=== PATIENT | male | born 1945 | race Caucasian/White ===

== ENCOUNTER 2017-03-15 10:44 | Outpatient (CLI) | payer MEDICARE, BC | END 2017-03-15 10:45 | disposition home or self-care (01) | DX: G47.33 Obstructive sleep apnea (adult) (pediatric) (principal) | CPT/HCPCS: 99214; G0463 ==

== ENCOUNTER 2018-02-07 12:00 | Outpatient (CLI) | payer MEDICARE, BC ==
--- NOTE | 2018-02-07 16:30 | XRAY Report ---
THREE VIEW RIGHT KNEE: 02/07/2018 CLINICAL INDICATION: Pain. FINDINGS: AP, lateral, sunrise views of the right knee demonstrate moderate osteoarthritis. A moderate effusion is present. There is no evidence of acute fracture or dislocation. Vascular calcifications are seen. IMPRESSION: MODERATE OSTEOARTHRITIS, WITH A MODERATE JOINT EFFUSION. TD: 02/07/2018 16:29
== END 2018-02-07 12:01 | disposition home or self-care (01) ==
LOC: DI.S 12:00
PROVIDERS: ATTEND Registered Nurse
DX: M17.11 Unilateral primary osteoarthritis, right knee (principal); M25.461 Effusion, right knee

== ENCOUNTER 2018-06-10 12:20 | Outpatient (CLI) | payer MEDICARE, BC ==
--- NOTE | 2018-06-11 15:48 | Ultrasound Report ---
Procedure Date: 06/10/2018 Accession Number: [id number] / [id number] Procedure: US - Carotid Doppler Complete CPT Code: FULL RESULT: EXAM: BILATERAL CAROTID AND VERTEBRAL ARTERY DUPLEX DOPPLER ULTRASOUND: EXAM DATE: 06/10/2018 01:09 PM CLINICAL HISTORY: Narrowing of right carotid findings on outside CT. COMPARISON: None provided. TECHNIQUE: Grayscale imaging, color Doppler, and duplex spectral Doppler were used to evaluate the carotid and vertebral arteries bilaterally. Static images were obtained. FINDINGS: There is a small amount of smooth calcified plaque in the bilateral carotid bulbs. Normal antegrade flow is present in bilateral vertebral arteries. VELOCITIES (cm/sec): Right: RCCA Prox: PSV 82 cm/sec. RCCA Dist: PSV 56 cm/sec, EDV 8 cm/sec. RECA: PSV 99 cm/sec. R Bulb: PSV 48 cm/sec, EDV 8 cm/sec, ICA/CCA ratio 0.85. YOBANI Prox: PSV 86 cm/sec, EDV 14 cm/sec, ICA/CCA ratio 1.53. YOBANI Mid: PSV 137 cm/sec, EDV 18 cm/sec, ICA/CCA ratio 2.44, degree of stenosis 50-60%. YOBANI Dist: PSV 112 cm/sec, EDV 14 cm/sec, ICA/CCA ratio 2.0, degree of stenosis 50-60%. RVA: PSV 34 cm/sec. RVA flow direction: Antegrade. Left: LCCA Prox: PSV 91 cm/sec. LCCA Dist: PSV 44 cm/sec, EDV 7 cm/sec. LECA: PSV 116 cm/sec. L Bulb: PSV 33 cm/sec, EDV 6 cm/sec, ICA/CCA ratio 0.75. LICA Prox: PSV 62 cm/sec, EDV 10 cm/sec, ICA/CCA ratio 1.40. LICA Mid: PSV 70 cm/sec, EDV 11 cm/sec, ICA/CCA ratio 1.6. LICA Dist: PSV 64 cm/sec, EDV 14 cm/sec, ICA/CCA ratio 1.4. LVA: PSV 24 cm/sec. LVA flow direction: Antegrade. ICA diameter stenosis: Right: 50-69% by velocity and <70% by NASCET criteria. Left: <50% by velocity and <70% by NASCET criteria. IMPRESSION: 1. There is a small amount of smooth calcified plaque in the bilateral carotid bulbs. 2. Mildly elevated velocity in the right mid ICA consistent with 50-69% diameter stenosis. 3. In the left carotid artery there are no elevated carotid artery velocities to suggest hemodynamically significant stenosis. 4. Normal antegrade flow is present in bilateral vertebral arteries. General Recommendations: Stenosis =50% ICA - Follow-up ultrasound 6-12 months Stenosis <50% ICA - High Risk Patient with plaque - Follow-up ultrasound 1-2 years Normal Study but High Risk Patient - Follow-up ultrasound 3-5 years Management recommendations and diagnostic criteria are based on current IAC endorsed standards in Carotid Artery Stenosis: Grayscale and Doppler Ultrasound Diagnosis. Validated velocity measurements with angiographic measurements and velocity criteria are extrapolated from diameter data as defined by the Society of Radiologists in Ultrasound Consensus Conference Radiology 2003; 229;340-346. RADIA
== END 2018-06-10 12:21 | disposition home or self-care (01) ==
LOC: DI 12:20
PROVIDERS: ATTEND Registered Nurse
DX: I65.21 Occlusion and stenosis of right carotid artery (principal)
CPT/HCPCS: 93880

== ENCOUNTER 2019-03-11 10:57 | Outpatient (CLI) | payer MEDICARE, BC | END 2019-03-11 10:58 | disposition home or self-care (01) | LOC: SC 10:57 | PROVIDERS: ATTEND Nurse Practitioner Family | DX: G47.33 Obstructive sleep apnea (adult) (pediatric) (principal) | CPT/HCPCS: 99214; G0463; 99212 ==

== ENCOUNTER 2019-05-30 | Outpatient (CLI) | payer MEDICARE, BC | END 2019-05-30 10:52 | disposition home or self-care (01) | DX: G47.33 Obstructive sleep apnea (adult) (pediatric) (principal) | CPT/HCPCS: 99214; G0463; 99212 ==

== ENCOUNTER 2019-07-30 10:43 | Outpatient (CLI) | payer MEDICARE, BC ==
[2019-07-30 11:38] VITALS: BP 120/60
--- NOTE | 2019-07-30 11:38 | SLEEP CARE CONSULTATION ---
Information from patient questionnaire entered by Shivani Guerra. I have reviewed and concur with the information entered by Shivani Guerra. This document represents the service I personally performed and the decisions made by me, Rea Espinal, RN, MSN, VASCULAR NEUROLOGIST. History of Present Illness Previous diagnosis: Moderate, Obstructive Sleep Apnea-Hypopnea Syndrome AHI: 29.7 Reason for CPAP/BiPAP follow up: other (2 month) Equipment obtained from: [employer] (he will be leaving town right before his 6 month replacement of supplies.) Mask style: Nasal pillows Backup mask available: No (He is to keep his current mask when replaced. ) Last cushion change: 2 weeks ago HPI additional information: CPAP pressure adjusted for elevated residual AHI and to accomodate [place] travel. I have since talked with [employer] Rep who states the CPAP has an altitude adjustment. Pressure change has been more comfortable. CPAP Compliance Data - Data Reviewed with Patient Average duration of nightly device use: 7.5 Compliance rate %: 98.3 (60 days) Current pressure setting (cmH2O): 13-16 Humidity settin Heated hose settin Average residual AHI: 4.3 Subjective Patient concerns: reports: nasal congestion (slight with no interference of CPAP use ), dry mouth, nose, throat (rare). denies: aerophagia, mask discomfort, air blowing in eyes, mask leak noise, condensation in mask/hose, epistaxis Observed to snore while using device: No Current pressure setting perceived as: comfortable On therapy, patient: reports: sleeping better, awakening more refreshed, being more awake and alert during the day, more rested overall, drowsiness while driving (some drowsiness noted on way up here. ) Initial [place] Sleepiness Scale score: 2 Current [place] Sleepiness Scale score: 4 Allergies and Home Medications Known drug allergies: Yes (cipro, sulfa ) Allergy and home medication list: Medication Name (generic/name brand) Strength & Dosage Atorvastatin 80mg tab one daily Amlodipine Besylate 5mg tab daily Lisinopril-Hydrochlorothiazide 20-25mg tab one daily Eliquis 5mg tab two daily Chlorpheniramine Malate (Aller-Chlor) 4mg tab one daily at bedtime - ? patient unsure if this is correct antihistamine Allergy List Cipro sulfa Review of Systems Review of systems same as previous: Yes Physical Exam Blood Pressure: 120/60 Cuff size: long Heart Rate: 63 O2 Saturation: 96 Height: 5 ft 8.5 in Weight (kg): 215 lb 9.6 oz Body Mass Index: 32.3 BMI Classification: Class 1 Impression and Plan 1. Obstructive Sleep Apnea-Hypopnea Syndrome, moderate, with good treatment compliance and good apnea control. On CPAP therapy, the patient has better sleep quality and is more rested overall. The pressure adjustment resolved residual AHI to normal ranged to 4.3. He also noted improved restfulness from pressure change. He is advised to contact me if any further problems with pressure. For his supply concerns while in [place], I wrote a prescription for 3 months travel supplies. Rare drowsiness noted on long distances. He is advised to rod puller and rest and reassess. I also answered his questions about cleaning and a reference sheet was given. Patient's apnea severity and rationale for treatment to reduce apnea, improve sleep quality and reduce cardiovascular and cerebrovascular events was reviewed. I also reviewed the benefit of consistent device use of CPAP for hypertension, arrhythmia. * * Continue CPAP pressure at 13- 16 cmH2O * Travel prescriptions * Notify me if snoring with mask or feeling that the pressure is too much or too little * Attempt to lose weight * Return for follow up in 1 year, or sooner if concerns arise I spent 100% of this 25 minute visit face to face with the patient with greater than 50% of this was spent time counseling the patient and coordination of care.
== END 2019-07-30 10:44 | disposition home or self-care (01) ==
LOC: SC 10:43
PROVIDERS: ATTEND Nurse Practitioner Family
DX: G47.33 Obstructive sleep apnea (adult) (pediatric) (principal)
CPT/HCPCS: 99214; G0463; 99212

== ENCOUNTER 2021-07-07 11:20 | Outpatient (CLI) | payer MEDICARE, BC ==
--- NOTE | 2021-07-07 11:48 | SLEEP CARE CONSULTATION ---
Information from patient questionnaire entered by Shivani Guerra. I have reviewed and concur with the information entered by Shivani Guerra. This document represents the service I personally performed and the decisions made by , Malissa Kohli ARNP. History of Present Illness Service Date and Time: 07/07/2021 1120 Previous diagnosis: Moderate, Obstructive Sleep Apnea-Hypopnea Syndrome AHI: 29.1 (in 2012) Reason for follow up: annual (last seen 06/2020) Equipment type: CPAP Equipment obtained from: [employer] (in [place]; getting supplies as needed) Mask style: Nasal pillows Backup mask available: Yes (old mask) Last cushion change: this morning Prior sleep studies: Yes Year and Where: 2012 - [facility] Type of Sleep Study: Polysomnography HPI additional information: KAIN REDDY was diagnosed to have moderate, AHI 29.1, obstructive sleep apnea- hypopnea syndrome and returned today for CPAP therapy annual follow-up. CPAP Compliance Data - Data Reviewed with Patient Average duration of nightly device use: 7 hr 47 min Compliance rate %: 100 (180 days) Current pressure setting (cmH2O): 10-12 Humidity settin Heated hose settin Average residual AHI: 8.1 Central apnea: 4.4 Obstructive apnea: 2.7 Average large leak: 0 Subjective Patient concerns: denies: aerophagia, mask discomfort, air blowing in eyes, mask leak noise, condensation in mask/hose, nasal congestion, dry mouth, nose, throat, epistaxis, other Observed to snore while using device: No Current pressure setting perceived as: comfortable On therapy, patient: reports: sleeping better, awakening more refreshed, being more awake and alert during the day, more rested overall. denies: drowsiness while driving Initial [place] Sleepiness Scale score: 1 (in 2013) Current [place] Sleepiness Scale score: 3 Allergies and Home Medications Drug allergies reviewed: Yes (Ciprofloxacin) Home medication list reviewed: Yes (Lipitor) Review of Systems Review of systems same as previous: Yes (no changes) Physical Exam Heart Rate: 62 O2 Saturation: 97 Height: 5 ft 8.5 in Weight: 215 lb Body Mass Index: 32.2 BMI Classification: Obese Nasal exam: positive: blood tinged nasal secretions Impression and Plan 1. Obstructive Sleep Apnea-Hypopnea Syndrome, moderate, with excellent treatment compliance and fair apnea control with mild elevation of residual AHI. On CPAP therapy, the patient has better sleep quality and is more rested overall. Apnea control is suboptimal but there is still significant improvement. Patient is aware of the [employer] recall on several devices like the patients machine. Patient was encouraged to register their device online with [employer] for the recall to see if their device is affected. If their device is affected they should start a claim. Patient denies any black particles seen in machine or hoses, any unusual odors coming from device. Patient has not experienced any physical symptoms such as upper airway irritation, headache, skin or eye irritation, asthma, nausea/vomiting, difficulty breathing or chest pain. Patient informed that they may use an inline CPAP filter that they can obtain online to reduce chance of any particles being inhaled or ingested. We discussed thoroughly the health risks of not using the CPAP versus continuing use with the filter in place. If patient is not able to sleep due to waking up choking, gasping for air or other respiratory distress that they may decide to continue using it until it is either replaced or repaired. Since the patients current machine is at least 5 years old the patient is opting to update their device with a device that is not on the recall. Patient voiced understanding and agreement with plan. Patient's apnea severity and rationale for treatment to reduce apnea, improve sleep quality and reduce cardiovascular and cerebrovascular events was reviewed. I also reviewed the benefit of consistent device use of CPAP for hypertension and arrhythmia. Patient was encouraged to lose weight for their overall health and to reduce apneas. He states he is alwa ys trying to lose weight by watching his diet. * Continue auto CPAP pressure at 10-12 cmH2O * Update device * Notify me if snoring with mask or feeling that the pressure is too much or too little * Attempt to lose weight * Call this office if any problems using CPAP * Return for follow up one month after obtaining new device, or sooner if concerns arise Counseling Topics: Spare mask, Weight loss health impact Visit Type: In Office Time Spent with Patient (minutes): 21 Provider Statement: I spent 100% of the Face to Face Visit with the patient with greater than 50% spent counseling the patient and coordination of care.
== END 2021-07-07 11:21 | disposition home or self-care (01) ==
LOC: SC 11:20
PROVIDERS: ATTEND Nurse Practitioner Family
DX: G47.33 Obstructive sleep apnea (adult) (pediatric) (principal); E66.9 Obesity, unspecified; Z68.32 Body mass index [BMI] 32.0-32.9, adult
CPT/HCPCS: 99213; G0463; 99212

== ENCOUNTER 2021-12-29 09:41 | Outpatient (CLI) | payer MEDICARE, BC ==
--- NOTE | 2021-12-29 10:09 | SLEEP CARE CONSULTATION ---
Information from patient questionnaire entered by Madiha Russell MA. I have reviewed and concur with the information entered by Madiha Russell MA. This document represents the service I personally performed and the decisions made by , Malissa Kohli ARNP. History of Present Illness Service Date and Time: 12/29/2021 0941 Previous diagnosis: Moderate, Obstructive Sleep Apnea-Hypopnea Syndrome AHI: 29.1 (in 2012) Reason for follow up: other (5 MONTH F/U, PRESSURE CHANGE ISSUE,) Equipment type: CPAP Equipment obtained from: [employer] (in [place]; getting supplies as needed) Mask style: Nasal pillows Backup mask available: Yes (old mask) Last cushion change: 2 weeks Prior sleep studies: Yes Year and Where: 2012 - [facility] Type of Sleep Study: Polysomnography HPI additional information: KAIN REDDY was diagnosed to have moderate, AHI 29.1, obstructive sleep apnea- hypopnea syndrome and returns via video telehealth visit today for CPAP therapy 5 month follow-up. Sleep Study - Results Type of Sleep Study: Polysomnography Prior sleep studies: Yes [facility] and [facility] CPAP Compliance Data - Data Reviewed with Patient Average duration of nightly device use: 8 HOURS 4 MINUTES Compliance rate %: 99.4 (180 days (100% 30 days)) Current pressure setting (cmH2O): 5-10 Humidity settin Heated hose settin Average residual AHI: 19.0 (23.2 (30 days) pt wearing mask while awake for 3+ hours) Central apnea: 11.5 Obstructive apnea: 5.5 Hypopnea: 2.0 Average large leak: 0 Subjective Patient concerns: denies: aerophagia, mask discomfort, air blowing in eyes, mask leak noise, condensation in mask/hose, nasal congestion, dry mouth, nose, throat, epistaxis, other Observed to snore while using device: Yes (some) Current pressure setting perceived as: comfortable On therapy, patient: reports: sleeping better, awakening more refreshed, being more awake and alert during the day, more rested overall. denies: drowsiness while driving Initial [place] Sleepiness Scale score: 1 (in 2012) Current [place] Sleepiness Scale score: 4 Allergies and Home Medications Home medication list reviewed: Yes (ezetimebe for cholesterol; lisinpril and HCTZ increased) Review of Systems Review of systems same as previous: Yes (no changes) Physical Exam Vital signs obtained and entered by: Telehealth visit Height: 5 ft 8.5 in Impression and Plan 1. Obstructive Sleep Apnea-Hypopnea Syndrome, moderate, with excellent treatment compliance and fair apnea control with elevated residual AHI. On CPAP therapy, the patient has better sleep quality and is more rested overall. Patient continues to have elevated AHI with high central 11.8, obstructive 6.7 and hypopnea 4.7 in the last 30 days. Patient states he is wearing the CPAP mask for a few hours while awake because he will sleep for 4-5 hours and then wake up and not be able to got to sleep. I reviewed therapy downloads and he had the best AHI reduction with using pressures between 8-9 cmH2O. The patients pressure will be changed to autoCPAP 5-9 cmH20 for elevation of residual AHI. Patient advised to contact me if pressure change is uncomfortable so that it can be adjusted. Goals for apnea control discussed. If still elevated at follow up will consider ordering a titration study. Patient's apnea severity and rationale for treatment to reduce apnea, improve sleep quality and reduce cardiovascular and cerebrovascular events was reviewed. I also reviewed the benefit of consistent device use of CPAP for hypertension and arrhythmia. * Change auto CPAP pressure to 5-9 cmH2O * Notify me if snoring with mask or feeling that the pressure is too much or too little * Attempt to lose weight * Call this office if any problems using CPAP * Return for follow up in 2 months, or sooner if concerns arise Counseling Topics: Weight loss health impact Visit Type: Telehealth Video Video Type: VSee Patient Location: Home Location of Provider: Office Patient agrees and consents to this telehealth visit type: Yes Patient agrees to have their insurance billed: Yes Time Spent with Patient (minutes): 27 Provider Statement: I spent 100% of the Telehealth Video Call with the patient with greater than 50% spent counseling the patient and coordination of care.
== END 2021-12-29 09:42 | disposition home or self-care (01) ==
LOC: SC 09:41
PROVIDERS: ATTEND Nurse Practitioner Family
DX: G47.33 Obstructive sleep apnea (adult) (pediatric) (principal)

== ENCOUNTER 2022-02-23 10:51 | Outpatient (CLI) | payer MEDICARE, BC ==
[2022-02-23 11:43] VITALS: BP 134/66
--- NOTE | 2022-02-23 11:43 | SLEEP CARE CONSULTATION ---
Information from patient questionnaire entered by Madiha Russell MA. I have reviewed and concur with the information entered by Madiha Russell MA. This document represents the service I personally performed and the decisions made by , Malissa Kohli ARNP. History of Present Illness Service Date and Time: 02/23/2022 1051 Previous diagnosis: Moderate, Obstructive Sleep Apnea-Hypopnea Syndrome AHI: 29.1 (in 2012) Reason for follow up: other (2 MONTH F/U, PRESSURE CHANGE, ) Equipment type: CPAP Equipment obtained from: [employer] (in [place]; getting supplies as needed) Mask style: Nasal pillows (Nuance Pro) Prior sleep studies: Yes Year and Where: 2012 - [facility] Type of Sleep Study: Polysomnography HPI additional information: KAIN REDDY was diagnosed to have moderate, AHI 29.1, obstructive sleep apnea- hypopnea syndrome and returned today for CPAP therapy 2 month with pressure change follow-up. Sleep Study - Results Type of Sleep Study: Polysomnography Prior sleep studies: Yes [facility] and [facility]: [facility] CPAP Compliance Data - Data Reviewed with Patient Average duration of nightly device use: 7 HOURS 59 MINUTES Compliance rate %: 96.7 (30 days) Current pressure setting (cmH2O): 5-9 (avg 6.5, 90% avg 8.7) Humidity settin Heated hose settin Average residual AHI: 7.1 Central apnea: 2.2 Obstructive apnea: 1 Hypopnea: 3.9 On Oxygen: No Subjective Patient concerns: reports: condensation in mask/hose, nasal congestion, dry mouth, nose, throat (has improved since last appt; getting daily), other (lost sense of taste - thinks because of dry mouth). denies: aerophagia, mask discomfort, air blowing in eyes, mask leak noise, epistaxis Observed to snore while using device: Yes Current pressure setting perceived as: too low (just a little) On therapy, patient: reports: sleeping better, awakening more refreshed, being more awake and alert during the day, more rested overall. denies: drowsiness while driving Initial [place] Sleepiness Scale score: 1 (in 2012) Current [place] Sleepiness Scale score: 6 Allergies and Home Medications Home medication list reviewed: Yes (new high cholesterol (unsure of name)) Review of Systems Review of systems same as previous: Yes (no changes) Physical Exam Vital signs obtained and entered by: SHERICE Blood Pressure: 134/66 (right) Cuff size: wrist Heart Rate: 62 O2 Saturation: 97 Height: 5 ft 8.5 in Weight: 200 lb (per pt report) Body Mass Index: 29.9 BMI Classification: Overweight Impression and Plan 1. Obstructive Sleep Apnea-Hypopnea Syndrome, moderate, with excellent treatment compliance and fair apnea control with elevated AHI. On CPAP therapy, the patient has better sleep quality and is more rested overall. Patient is satisfied with current pressure settings. He states occasionally when coming back from the bathroom the pressure feels a little low but other walls feels comfortable. He feels more rested and energetic during the day. He has had some condensation in the mask that is falling on the face. He has put his machine down on the floor and his heated hose is at 5. His humidity is set at 3. He has trouble with dry mouth and thinks his taste is gone because of the constant dry mouth. He is also using Biotene. He knows that he oral vents and has ordered a chinstrap as I suggested. He has not yet received it. I encouraged him to cover his tubing to see if this will reduce his condensation. He will also change the heated tubing to see if the tube he is using is defective. He will use the chinstrap to reduce oral dryness. He voiced agreement with plan. Patient's apnea severity and rationale for treatment to reduce apnea, improve sleep quality and reduce cardiovascular and cerebrovascular events was reviewed. I also reviewed the benefit of consistent device use of CPAP for hypertension and arrhythmia. Patient has a Dreamstation that was updated in 2019. He is waiting on [employer] to replace/repair his Dreamstation. * Continue auto CPAP pressure at 5-9 cmH2O * Patient to start using a chinstrap to reduce oral dryness * Notify me if snoring with mask or feeling that the pressure is too much or too little * Call this office if any problems using CPAP * Return for follow up in 3 months, or sooner if concerns arise Counseling Topics: Spare mask, Weight loss health impact Visit Type: In Office Time Spent with Patient (minutes): 24 Provider Statement: I spent 100% of the Face to Face Visit with the patient with greater than 50% spent counseling the patient and coordination of care.
== END 2022-02-23 10:52 | disposition home or self-care (01) ==
LOC: SC 10:51
PROVIDERS: ATTEND Nurse Practitioner Family
DX: G47.33 Obstructive sleep apnea (adult) (pediatric) (principal)
CPT/HCPCS: 99213; G0463; 99212

== ENCOUNTER 2024-03-21 14:20 | Outpatient (CLI) | payer MEDICARE, BC ==
--- NOTE | 2024-03-21 18:20 | XRAY Report ---
PROCEDURE: Chest 2V INDICATIONS: CHRONIC COUGH TECHNIQUE: 2 views of the chest were acquired. COMPARISON: None. FINDINGS: Surgical changes and devices: Prior CABG changes. Lungs and pleura: Left lateral midlung scarring. Mild perihilar interstitial thickening. Small bilat eral pleural effusions or pleural tethering. Small opacity laterally in the left lower lung and minor alveolar opacity in the right infrahilar region. Mediastinum: Cardiomegaly and mildly prominent central venous structures. Normal aortic contour with moderate atherosclerotic calcification. Bones and chest wall: No suspicious bony lesions. Overlying soft tissues appear unremarkable. IMPRESSION: Mixed interstitial and alveolar opacities bilaterally, most prominent in the perihilar regions and at the left lateral lower lung. These are nonspecific, and the differential is broad including intersti tial and pulmonary edema, interstitial pneumonitis, bacterial or viral pneumonia, less likely drug re action or hypersensitivity. Cardiomegaly supports possibility of CHF. Reviewed by: Yuliana Salinas MD on 03/21/2024 5:55 PM PDT Approved by: Yuliana Salinas MD on 03/21/2024 5:55 PM PDT Station ID: [id number]
== END 2024-03-21 14:21 | disposition home or self-care (01) ==
LOC: DI.S 14:20
PROVIDERS: ATTEND Registered Nurse
DX: R05.3 Chronic cough (principal); R91.8 Other nonspecific abnormal finding of lung field; I51.7 Cardiomegaly

== ENCOUNTER 2024-04-30 13:03 | Outpatient (CLI) | payer MEDICARE, BC ==
--- NOTE | 2024-04-30 13:53 | Sleep Patient Instructions ---
Sleep Center Visit Summary - Patient Visit Information Reason for Visit: 9-month follow-up - Patient Instructions Additional Instructions: You were here for follow up of CPAP therapy. You will be continued on CPAP therapy with pressure at 8-11 cmH2O. Please let us know if the pressure change is uncomfortable and we can make further adjustments of the pressure. I am also ordering a titration study to find optimal pressure. We will see you in follow up after the study. You may contact us sooner for any questions or concerns. - Clinic Information Contact: [facility] [address] [place] [address] [email or web address] T: [phone]
--- NOTE | 2024-04-30 14:00 | SLEEP CARE CONSULTATION ---
Information from patient questionnaire entered by Liliane Tucker. I have reviewed and concur with the information entered by Liliane Tucker. This document represents the service I personally performed and the decisions made by me, Malissa Kohli ARNP. History of Present Illness Service Date and Time: 04/30/2024 1303 Previous diagnosis: Moderate, Obstructive Sleep Apnea-Hypopnea Syndrome AHI: 29.1 (in 2012) Reason for follow up: other (9 MONTH F/U) Equipment type: CPAP (BERRIOS Dreamstation 2, SD CARD NEEDED) Equipment obtained from: [employer] (in [place]; getting supplies as needed) Mask style: Nasal pillows (Nuance Pro) Backup mask available: Yes (old mask) Last cushion change: 1 month Prior sleep studies: Yes Year and Where: 2012 - [facility] Type of Sleep Study: Polysomnography HPI additional information: KAIN REDDY was diagnosed to have moderate, AHI 29.1, obstructive sleep apnea- hypopnea syndrome and returned today for CPAP therapy 9 month follow-up. Sleep Study - Results Type of Sleep Study: Polysomnography Prior sleep studies: Yes Year and Where: 2012 - [facility] CPAP Compliance Data - Data Reviewed with Patient Average duration of nightly device use: 7 hours 34 minutes Compliance rate %: 97 (180/180 days used) Current pressure setting (cmH2O): 7-10 (avg 9.1, last 30 8.8) Average residual AHI: 10.8 Subjective Missed days of use due to: reports: other (fall asleep without mask) Patient concerns: denies: aerophagia, mask discomfort, air blowing in eyes, mask leak noise, condensation in mask/hose, nasal congestion, dry mouth, nose, throat, epistaxis Observed to snore while using device: No Current pressure setting perceived as: too low (when first puts mask on; lets run and is good in a few minutes) On therapy, patient: reports: sleeping better, awakening more refreshed, drowsiness while driving Initial [place] Sleepiness Scale score: 1 (in 2012) Current [place] Sleepiness Scale score: 6 Allergies and Home Medications Known drug allergies: Yes (as listed) Drug allergies reviewed: Yes Home medication list reviewed: Yes (as listed) Allergy and home medication list: Allergies ciprofloxacin Allergy (Verified 04/25/24 09:19) Medications: Amlodipine 5 mg daily Atorvastatin 80 mg daily Exetimbe 10 mg daily Furosemide 20 mg daily Lisinopril/HCTZ 20-12.5 mg twice daily Eliquis 5 mg twice daily Melatonin 5 mg daily Tamsulosin 0.4 mg daily Vit C 1000 mg daily Tadalafil 20 mg as needed Magnesium Calcium 800/400 mg daily Prilosec 20 mg daily Review of Systems Review of systems same as previous: No (Triple Bypass, Sep 18) Physical Exam Vital signs obtained and entered by: Malissa Garcia NP Blood Pressure: 121/53 Cuff size: regular Heart Rate: 53 O2 Saturation: 97 Height: 5 ft 8.5 in Weight: 188 lb 3.2 oz Body Mass Index: 28.2 BMI Classification: Overweight Impression and Plan 1. Obstructive Sleep Apnea-Hypopnea Syndrome, moderate, with good treatment compliance and fair apnea control with elevated residual AHI. On CPAP therapy, the patient has better sleep quality and is more rested overall. His residual AHI is more elevated than 9 months ago. His average is consistently above 5 events per hour. His last titration study was back in 2012. I would like to get him back into the sleep lab to see if we can find a more optimal pressure setting for him. He says when he is down in [place] he can feel short of breath because the elevation is at 5000 where we are at [place]. He is wondering if he needs nightly oxygen. The patients pressure will be changed to autoCPAP 8-11 cmH20 for elevation of residual AHI. Patient advised to contact me if pressure change is uncomfortable so that it can be adjusted. Goals for apnea control discussed. Patient's apnea severity and rationale for treatment to reduce apnea, improve sleep quality and reduce cardiovascular and cerebrovascular events was reviewed. I also reviewed the benefit of consistent device use of CPAP for hypertension, arrhythmia. 2. Overweight, unspecified. Currently patients BMI is 28.4. Obesity increases the risk of apnea, CPAP pressure requirements and overall health risks especially cardiovascular and diabetes. Thus patient is advised to continue to try to lose weight. * Titration study * Change auto CPAP pressure to 8-11 cmH2O * Notify me if snoring with mask or feeling that the pressure is too much or too little * Continue to try to lose weight * Call this office if any problems using CPAP * Return for follow up after titration study, or sooner if concerns arise Adjust device pressure to (cmH2O): 8-11 Counseling Topics: Weight loss health impact Prescriptions: Device supplies Plan: Titration study and follow up Visit Type: In Office Time Spent with Patient (minutes): 28 Provider Statement: I spent 100% of the Face to Face Visit with the patient with greater than 50% spent counseling the patient and coordination of care.
[2024-04-30 14:02] VITALS: BP 121/53; O2SAT 97
== END 2024-04-30 13:04 | disposition home or self-care (01) ==
LOC: SC 13:03
PROVIDERS: ATTEND Nurse Practitioner Family
DX: G47.33 Obstructive sleep apnea (adult) (pediatric) (principal); E66.3 Overweight; Z68.28 Body mass index [BMI] 28.0-28.9, adult
CPT/HCPCS: 99213; G0463; 99212

== ENCOUNTER 2024-07-02 20:51 | Outpatient (CLI) | payer MEDICARE, BC | END 2024-07-02 20:52 | disposition home or self-care (01) | LOC: SC 20:51 | PROVIDERS: ATTEND Nurse Practitioner Family | DX: G47.33 Obstructive sleep apnea (adult) (pediatric) (principal); G47.61 Periodic limb movement disorder; I48.91 Unspecified atrial fibrillation | CPT/HCPCS: 95811 ==

== ENCOUNTER 2024-07-23 09:30 | Outpatient (CLI) | payer MEDICARE, BC ==
--- NOTE | 2024-07-23 09:17 | SLEEP CARE CONSULTATION ---
Information from patient questionnaire entered by Liliane Tucker. I have reviewed and concur with the information entered by Liliane Tucker. This document represents the service I personally performed and the decisions made by , Malissa Kohli ARNP. History of Present Illness Service Date and Time: 07/23/2024 0900 Initial [place] Sleepiness Scale score: 1 (in 2012) Current [place] Sleepiness Scale score: 4 (07/23/24) Additional HPI information: KAIN REDDY returns for follow up of a manual CPAP titration study performed on 07/02/24. Previous study done on 06/01/13 showed moderate obstructive sleep apnea with AHI 29.1. The patient was informed of the following polysomnography findings: CPAP was initiated at 7 cmH2O and titrated up to 9 cmH2O. CPAP at 8 cmH2O appeared to be optimal (AHI of 0.7 per hour on the pressure). There was supine REM sleep on the pressure. Oxygen saturation was normal throughout the night. Lower CPAP settings allowed frequent residual respiratory events. The patient appeared to have tolerated positive airway pressure therapy fairly well. He had mild periodic leg movement of sleep and cardiac monitoring showed atrial fibrillation. Patient will be continued on CPAP with pressure set at 8 cmH2O. Sleep Study - Results Type of Sleep Study: Polysomnography (TITRATION STUDY COMPLETED 07/02/24) Prior sleep studies: Yes Year and Where: 2012 - [facility] Polysomnography/Home Sleep Study results: IMPRESSION: The quality of the study is good. CPAP was initiated at 7 cmH2O and titrated up to 9 cmH2O. CPAP at 8 cmH2O appeared to be optimal (AHI of 0,7 per hour on the pressure). There was supine REM sleep on the pressure. Oxygen saturation was normal throughout the night. Lower CPAP settings allowed frequent residual respiratory events. The patient appeared to have tolerated positive airway pressure therapy fairly well. The patients sleep efficiency was reduced due to stone rubber awakening. The sleep architecture was abnormal for sleep fragmentation and reduced amount of time spent in slow wave sleep (N3). There was mild periodic leg movement of sleep, contributing to the sleep fragmentation. Cardiac rhythm appeared to be atrial fibrillation. No abnormal behavior (parasomnia) observed during the night. CONCLUSIONS and RECOMMENDATIONS: 1. Obstructive sleep apnea-hypopnea (ICD-10 G47.33), moderate (AHI was 29.1), adequately controlled with CPAP at 8 cmH2O. CPAP therapy is, therefore, recommended at the pressure setting. AutoCPAP set between 5 and 10 cmH20 is also appropriate. Mask used was a [employer]ics DreamWear nasal cushion mask size medium. With BMI of 28.2 Kg/M2 , some weight loss is also recommended. 2. 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 Clinical correlation advised. 3. Atrial fibrillation - ICD I48.91. Recommend further workup and treatment as appropriate. Allergies and Home Medications Known drug allergies: Yes (as listed) Drug allergies reviewed: Yes Home medication list reviewed: Yes (no changes) Allergy and home medication list: Allergies ciprofloxacin Allergy (Verified 07/23/24 08:38) Review of Systems Review of systems same as previous: Yes (NO CHANGE) Physical Exam Vital signs obtained and entered by: LILIANE Harris MA Height: 5 ft 8 in (PER PT) Weight: 180 lb (PER PT) Body Mass Index: 27.3 BMI Classification: Overweight Impression and Plan 1. Obstructive Sleep Apnea-Hypopnea Syndrome, moderate. Fabian returns after titration study to find optimal pressure of his sleep apnea. His optimal pressure appeared to be 8 cm H2O. Pressure setting of 5-10 cm H2O was also appropriate. He appeared to tolerate pressure well on the night of the study. Positive pressure therapy could benefit hypertension and arrhythmia. The patient will be continued on nasal autoCPAP therapy with pressure set at 8 cmH2O. Compliance guidelines also reviewed. A copy of compliance guidelines will be gi allie for reference at check out. 2. Periodic limb movement, mild, that did not fragment patients sleep. Periodic limb movement of sleep (PLMS) is characterized by episodes of repetitive limb movements that occur during sleep and usually involve the lower limbs. The etiology is unknown. Patient was advised that no treatment is needed at this time. If symptoms increase, then further evaluation is indicated. 3. Atrial Fibrillation. His cardiac monitoring showed atrial fibrillation. He has a history of atrial fibrillation and is being followed by cardiology. 4. Overweight, unspecified. Currently patients BMI is 27.3. Obesity increases the risk of apnea, CPAP pressure requirements and overall health risks especially cardiovascular and diabetes. Thus patient is advised to lose weight. * Change CPAP pressure to 8 cmH2O * Notify me if snoring with mask or feeling that the pressure is too much or too little * Attempt to lose weight * Call this office if any problems using CPAP * Return for follow up in 1-2 months, or sooner if concerns arise Adjust device pressure to (cmH2O): 8 Follow up with Sleep Care in: 1-2 months Visit Type: Telehealth Phone Time Spent with Patient (minutes): 20 Provider Statement: I spent 100% of the Telehealth Phone Call with the patient with greater than 50% spent counseling the patient and coordination of care.
== END 2024-07-23 09:31 | disposition home or self-care (01) ==
LOC: SC 09:30
PROVIDERS: ATTEND Nurse Practitioner Family
DX: G47.33 Obstructive sleep apnea (adult) (pediatric) (principal); G47.61 Periodic limb movement disorder; I48.91 Unspecified atrial fibrillation; E66.3 Overweight; Z68.27 Body mass index [BMI] 27.0-27.9, adult
CPT/HCPCS: 99442